=== PATIENT | male | born 2000 | race Caucasian/White ===

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

== ENCOUNTER 2024-06-23 23:40 | Emergency (ER) | payer BC | END 2024-06-24 00:15 | LOC: VM.ED 23:40 | DX: Z02.89 Encounter for other administrative examinations (principal) | CPT/HCPCS: 99283 ==